=== PATIENT | male | born 1960 | race Caucasian/White ===

== ENCOUNTER 2016-06-01 16:32 | Emergency (ER) | payer BC ==
--- NOTE | ~2016-06-01 | CR211 ---
[facility]. [facility] A Service of [facility] & [facility] RADIOLOGY TEXT RESULTS PATIENT: ELLYN RAY LOCATION: SED : 64 UNIT #: [id number] AGE: [address]: Leopoldo eWlls SEX: M ORDER DR: [id number] [place] [id number] E MR#: [id number] Acc #: [id number] NAME: ELLYN RAY : 1960 SEX: M STUDY DATE/TIME: 06/01/2016 16:43 UNIT: SED ROOM: STUDY DESCRIPTION: CR Ribs Uni 2 View W PA Ch Rt Attending Physician: Leopoldo Wells P.A.-C. Ordering Physician: Leopoldo Wells P.A.-C. Primary Care Physician: Primary Care Physician No MEDICAL IMAGING REPORT This report is preliminary unless electronic signature is present. EXAM Chest x-ray and right rib series 06/01/2016 COMPARISON None CLINICAL HISTORY Right side pain after fall onto back 2 hours previously. FINDINGS Chest radiograph shows submaximal inspiration and low lung volumes and some mildly prominent linear densities in the bases presumably atelectasis but no pneumothorax or consolidation or other acute abnormality. Limited right rib series is normal. IMPRESSION Negative limited rib series, submaximal inspiration. Otherwise negative chest. Dictated by... Juno Cuba M.D. THIS IS AN ELECTRONICALLY VERIFIED REPORT Juno Cuba M.D. at 06/03/2016 9:43 AM TEV/to TD: 06/01/2016 21:41 JOB #: [id number] MEDICAL IMAGING REPORT Page 1 of 1
== END 2016-06-01 18:02 | disposition home or self-care (01) ==
LOC: SED 16:32
DX: S20.212A Contusion of left front wall of thorax, initial encounter (principal); W19.XXXA Unspecified fall, initial encounter; Y92.69 Other specified industrial and construction area as the place of occurrence of the external cause; Y99.0 Civilian activity done for income or pay
CPT/HCPCS: 71101; 99283